=== PATIENT | male | born 1995 | race Hispanic/Latino ===

== ENCOUNTER 2017-08-09 20:00 | Emergency (ER) | payer SELFPAY ==
[2017-08-09] MEDS ORDERED: DIPHENHYDRAMINE HCL 25 MG CAPSULE ONE (20:54)
[2017-08-09] MEDS ORDERED: FAMOTIDINE 20MG TAB 20 MG TAB ONE (20:54)
[2017-08-09] MEDS ORDERED: PREDNISONE 20 MG TABLET ONE (20:54)
== END 2017-08-09 21:41 | disposition home or self-care (01) ==
LOC: EDH 20:00
DX: L25.9 Unspecified contact dermatitis, unspecified cause (principal)
CPT/HCPCS: 99284; Q0163

== ENCOUNTER 2023-06-13 19:21 | Emergency (ER) | payer BC, OTHER ==
[~2023-06-13] VITALS: Ht 167.6 cm; Wt 101.6 kg
[2023-06-13 20:07] LABS: HEMATOCRIT 46.2 % (42-54); MEAN CORPUSCULAR HEMOGLOBIN 33.7 pg (27.0-33.0); MEAN CORPUSCULAR HGB CONC 36.1 g/dL (32.0-36.0); MEAN CORPUSCULAR VOLUME 93.3 fL (79-99); PLATELET COUNT (AUTO) 279 K/uL (130-400); RED BLOOD CELL COUNT(AUTO) 4.95 MIL/uL (4.50-6.20); RED CELL DISTRIBUTION WIDTH 12.1 % (11.0-15.5); WHITE BLOOD COUNT (AUTO) 10.7 K/uL (4.8-10.8)
[2023-06-13 20:15] LABS: CREATININE 1.1 mg/dL (0.5-1.5)
[2023-06-13 20:29] LABS: MAGNESIUM 2.2 mg/dL (1.80-2.40); THYROID STIMULATING HORMONE 4.75 uIU/mL (0.36-3.74)
[2023-06-13] MEDS ORDERED: CYCLOBENZAPRINE HCL 10 MG TABLET PO ONE (20:30)
[2023-06-13 21:08] VITALS: BP 135/68; PULSE 75; RESP 17; O2SAT 98
== END 2023-06-13 21:17 | disposition home or self-care (01) ==
LOC: EDH 19:21
DX: M62.838 Other muscle spasm (principal); R94.6 Abnormal results of thyroid function studies
CPT/HCPCS: 36415; 80048; 82550; 83735; 84443; 84484; 85027; 93005

== ENCOUNTER 2025-07-15 11:03 | Emergency (ER) | payer BC ==
[~2025-07-15] VITALS: Ht 167.6 cm; Wt 99.8 kg
--- NOTE | 2025-07-15 11:13 | ERN ---
ED Note History of Present Illness Stated Complaint: CHEST PAIN Chief Complaint: Chest Pain Time Seen by MD: 11:05 Dictation: PATIENT IS A 30-YEAR-OLD MALE COMING IN TODAY WITH LEFT SHOULDER AND ANTERIOR CHEST PAIN HE HAS HAD OFF AND ON FOR THE LAST 2-3 WEEKS. NO FEVER NO CHILLS NO NAUSEA VOMITING. HE STATES THE PAIN DOES NOT RADIATE. 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 FINALLY SAID HE HAS A SMOKER. SAID HE SAW HIS PRIMARY CARE DOCTOR LAST WEEK WHO EXAMINED HIM AND GAVE HIM PREDNISONE HOWEVER IT HAS NOT HELPED. STATES HE HAS BEEN COUGHING RECENTLY AND HE THINKS IT IS BECAUSE OF THE SMOKING, HE SAID HE COUGHED UP SOME BLOOD-TINGED PHLEGM AFTER COUGHING SEVERAL TIMES. 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 Allergies: Coded Allergies: No Known Allergies (Unverified Allergy, Unknown, 06/13/23) Past Medical History Past Medical History: No Pertinent History Surgical History: None Social History: Smokers, Drugs RN Note Reviewed/Agreed w/PFSH: Yes Review of System Dictation CONSTITUTIONAL: NEGATIVE EXCEPT FOR HPI HEAD/FACE: NEGATIVE EXCEPT FOR HPI EENT: NEGATIVE EXCEPT FOR HPI RESPIRATORY: NEGATIVE EXCEPT FOR HPI LEFT CHEST PAIN GASTROINTESTINAL/ABDOMINAL: NEGATIVE EXCEPT FOR HPI GENITOURINARY: NEGATIVE EXCEPT FOR HPI MUSCULOSKELETAL: NEGATIVE EXCEPT FOR HPI INTEGUMENTARY: NEGATIVE EXCEPT FOR HPI NEUROLOGICAL/PSYCH: NEGATIVE EXCEPT FOR HPI HEMATOLOGIC/LYMPHATIC: NEGATIVE EXCEPT FOR HPI ALL SYSTEMS NEGATIVE, EXCEPT NOTED ABOVE. 13 POINT REVIEW OF SYSTEMS ASSESSED AND ALL NEGATIVE EXCEPT FOR ABOVE. Initial Vital Sign VS Vital Signs Date Time Temp Pulse Resp B/P (MAP) Pulse Ox O2 Delivery O2 Flow Rate FiO2 07/15/25 11:05 98.2 102 16 143/81 98 Room Air 07/15/25 11:41 0 21 Physical Exam Dictation VITAL SIGNS REVIEWED GENERAL APPEARANCE: ALERT, ORIENTED X 3, NO ACUTE DISTRESS, WELL DEVELOPED, NOURISHED. HEAD AND FACE: NON-TRAUMATIC. EYES: PERRL, PINK CONJUNCTIVAS, EYELID NO TRAUMA, ANTERIOR CHAMBER WITH ARCUS SENILIS. EARS: PINNAS INTACT AND NO SIGNS OF TRAUMA OR ERYTHEMA EAR CANALS CLEAR AND NO DISCHARGE TM NO ERYTHEMA NOSE: NO DISCHARGE, NO BLEEDING. OROPHARYNX: MOUTH NORMAL, TONGUE PINK, PHARYNX CLEAR,NO ERYTHEMA, TONSILS NO EXUDATES, NO ABSCESSES NOTED, MUCOUS MEMBRANE MOIST NECK: SUPPLE, NON-TENDER, NO THYROMEGALY, NO MASSES, NO JVD, NO BRUITS BREAST:DEFERRED CHEST LEFT ANTERIOR CHEST PAIN TENDERNESS PALPABLE REPRODUCES PAIN., NO CREPITUS, NO PARADOXICAL MOVEMENT, NO RETRACTIONS LUNGS:CLEAR, WELL-VENTILATED, SYMMETRIC, NO RALES, NO WHEEZING, NO RHONCHI, NO STRIDOR, GOOD BREATH SOUNDS BILATERALLY HEART: REGULAR RATE, REGULAR RHYTHM, NO MURMUR, NO GALLOPS VASCULAR: NO PERIPHERAL EDEMA, ABDOMEN: SOFT, POSITIVE BOWEL SOUNDS, NONDISTENDED, NO GUARDING, NONTENDER, NO REBOUND, NO MASSES NO HEPATOMEGALY, NO SPLENOMEGALY, NO JANSEN'S SIGN, NO HERNIAS. RECTAL: DEFERRED GENITAL: DEFERRED NEUROLOGICAL: NORMAL SPEECH, MOTOR FUNCTION INTACT, SENSORY FUNCTION INTACT MUSCULOSKELETAL: NECK NONTENDER, FULL RANGE OF MOTION, BACK NONTENDER, FULL RANGE OF MOTION, EXTREMITIES: NONTENDER, FULL RANGE OF MOTION SKIN: COLOR PINK, DRY, NO TURGOR, NO RASH, NO LACERATIONS, NO ABRASIONS, NO CONTUSIONS. LYMPHATIC: DEFERRED Results (Laboratory/Radiology) Laboratory/Radiology Laboratory Tests Test 07/15/25 11:23 White Blood Count 8.1 K/uL (4.8-10.8) Red Blood Count 5.36 MIL/uL (4.50-6.20) Hemoglobin 17.4 g/dL (14.0-18.0) Hematocrit 49.5 % (42-54) Mean Corpuscular Volume 92.4 fL (79-99) Mean Corpuscular Hemoglobin 32.5 pg (27.0-33.0) Mean Corpuscular Hemoglobin Concent 35.2 g/dL (32.0-36.0) Red Cell Distribution Width 12.2 % (11.0-15.5) Platelet Count 257 K/uL (130-400) Mean Platelet Volume 10.4 fL (7.5-10.5) Immature Granulocyte % (Auto) 0.2 % (0-1) Neutrophils (%) (Auto) 48.9 % (40.0-77.0) Lymphocytes (%) (Auto) 39.7 % (21.0-51.0) Monocytes (%) (Auto) 5.7 % (3.0-13.0) Eosinophils (%) (Auto) 4.9 % (0.0-8.0) Basophils (%) (Auto) 0.6 % (0.0-5.0) Neutrophils # (Auto) 4.0 K/uL (1.8-7.7) Lymphocytes # (Auto) 3.2 K/uL (1.0-4.8) Monocytes # (Auto) 0.5 K/uL (0.1-1.0) Eosinophils # (Auto) 0.40 K/uL (0.00-0.70) Basophils # (Auto) 0.05 K/uL (0.00-0.20) Absolute Immature Granulocyte (auto 0.02 K/uL (0-1) Nucleated Red Blood Cells 0.0 % (0.0-0.19) Sodium Level 140 mmol/L (136-145) Potassium Level 4.1 mmol/L (3.5-5.1) Chloride Level 105 mmol/L (101-111) Carbon Dioxide Level 27 mmol/L (21-32) Blood Urea Nitrogen 17 mg/dL (7-18) Creatinine 1.1 mg/dL (0.5-1.3) Glomerular Filtration Rate Calc 94 mL/min (>90) Random Glucose 100 mg/dL (70-105) Total Calcium 9.0 mg/dL (8.5-10.1) Troponin I High Sensitivity 7 ng/L (4-75) 1132/CHEST X-RAY NEGATIVE Labs Reviewed?: Yes EKG: (+) NSR EKG Comment: 1107/EKG SINUS RHYTHM/HEART RATE 94/AXIS NORMAL/EARLY REPOLARIZATION SEEN V4 V5 V6 ED Course ED Course Orders Procedure Category Date Status Time Cbc With Differential LAB 07/15/25 Complete 11:09 Chest 1vw RAD 07/15/25 Taken 11:09 12 Lead Ekg Tracing- EKG 07/15/25 Complete Technical 11:09 Troponin I High LAB 07/15/25 Complete Sensitivity 11:09 Basic Metabolic Panel LAB 07/15/25 Complete 11:09 Ibuprofen 800 Mg Tab PHA 07/15/25 Complete (Motrin) 11:30 Current Medications Medications (Trade) Dose Ordered Sig/Kamaljit Route PRN Reason Start Time Stop Time Status Last Admin Dose Admin Ibuprofen (moTRIN) 800 mg ONCE ONCE PO 07/15/25 11:30 07/15/25 11:31 DC Vital Signs Date Time Temp Pulse Resp B/P (MAP) Pulse Ox O2 Delivery O2 Flow Rate FiO2 07/15/25 11:41 98.2 92 16 138/74 98 Room Air* 0 21 07/15/25 11:05 98.2 102 16 143/81 98 Room Air 1204/cardiac workup is negative chest x-ray negative. Patient will be discharged home with costochondritis and treated for pain HEART Score Response (Comments) Value History: Low suspicion (0) 0 EKG: Normal 0 Age: < 45yrs (0) 0 Risk Factors: No known risk factors (0) 0 Initial Troponin: Normal limit (0) 0 Total 0 Medical Decision Making MDM MDM: Differential diagnosis: Pneumonia/bronchitis/ACS/AMI/electrolyte imbalance/dehydration/costochondritis Rationale: Tests considered and ordered secondary to shared decision making include: EKG/labs/radiology Previous outside records reviewed: Old ER visits. Risk of complication and/or morbidity or mortality of patient management: None Medications-Per medication reconciliation Need for hospitalization: Patient does not meet criteria for hospitalization. No Need for emergency major/minor surgery: No There are no social concerns with this patient. Prescription drug management ibuprofen Prescriptions will include symptomatic care Patient's prior external medical records from other ER visits were reviewed by me as indicated. Prior testing and results from previous visits were reviewed. Prior tests were taken into account with medical decision making and resource utilization, independent historian/historians were used to obtain complete medical history. I independently interpreted the test that were performed, results were reviewed by me and considered findings on radiology if ordered. Medical management and examination interpretation discussions were had by me w ith other qualified healthcare professionals as indicated for the patient's care. DX & DISP Disposition: Discharge Departure Impression: Primary Impression: Acute costochondritis Condition: Stable Scripts Ibuprofen (Ibuprofen 800 mg Tab) 800 Mg Tab 800 MG PO Q8H PRN for fever or pain, #30 TAB 0 Refills Prov: PAUL GRAHAM 07/15/25 Additional Instructions: Follow-up with primary care provider in 1 to 2 days. Take medications as directed here in the emergency room. Okay to continue home medications unless otherwise discussed during your visit in the emergency room today. Return to your nearest emergency room if symptoms worsen or if there is no improvement. Call 911 if you need immediate assistance. Take Tylenol or Motrin [id number] as needed and if no contraindications are present. Increase oral hydration. A wound culture or urine culture was ordered here in the emergency room department please follow-up with primary care provider and advise them to get repeat ports from our facility. If you had any Jose David wrap/splints that were applied here, please do not remove them until you see your primary care or specialty. Take ibuprofen every8 hours with food for the next three days. Diet and activity as tolerated. See your primary care doctor for follow up Referrals: SELF,REFERRAL (PCP) Time of Disposition: 12:04 I have reviewed the case, and I agree with, Diagnosis and Plan PAUL GRAHAM OVERNIGHT ASSOCIATE Jul 15, 2025 11:13
--- NOTE | 2025-07-15 11:17 | EKG ---
[facility] Test Date: 2025-07-15 Test Time: 11:07:46 Pat Name: TOM ALLAN Department: ED Room: Gender: M [employer] Operator: [id number] : 1995 Requested By: PAUL GRAHAM Order Number: [id number] Reading MD: Modesto Jordan Measurements Intervals [place] Rate: 94 P: 47 VT: 158 QRS: 60 QRSD: 97 T: 31 QT: 352 QTc: 440 Interpretive Statements Sinus rhythm ST elev, probable normal early repol pattern Compared to ECG 06/13/2023 20:31:26 No significant changes Electronically Signed On 07-16-2025 09:32:03 EVENT DECORATOR AND DESIGNER by Modesto Jordan Please click the below link to view image of tracing.
[2025-07-15 11:30] LABS: IMMATURE GRANULOCYTE ABSOLUTE 0.02 K/uL (0-1); NUCLEATED RED BLOOD CELLS 0.0 % (0.0-0.19); PLATELET COUNT (AUTO) 257 K/uL (130-400); RED BLOOD CELL COUNT(AUTO) 5.36 MIL/uL (4.50-6.20); RED CELL DISTRIBUTION WIDTH 12.2 % (11.0-15.5); WHITE BLOOD COUNT (AUTO) 8.1 K/uL (4.8-10.8)
[2025-07-15 11:44] LABS: CREATININE 1.1 mg/dL (0.5-1.3); GLOMERULAR FILTR. RATE CALC 94.0 mL/min (>90); GLUCOSE,RANDOM 100.0 mg/dL (70-105); SODIUM SERUM 140.0 mmol/L (136-145); UREA NITROGEN, BLOOD 17.0 mg/dL (7-18)
[2025-07-15 12:15] VITALS: BP 132/70; PULSE 88; RESP 16; TEMP 98.2; O2SAT 98
--- NOTE | 2025-07-15 12:58 | HMCIMG ---
EXAM: CR Chest, 1 View. CLINICAL HISTORY: CHEST PAIN COMPARISON: None provided. FINDINGS: LUNGS: The lungs show no infiltrate or other acute finding. PLEURAL SPACES: No pleural effusion or pneumothorax. MEDIASTINUM: Cardiac size and mediastinal contours within normal limits. BONES: No acute osseous abnormality. IMPRESSION: No acute cardiopulmonary pathology is evident. /[place]
== END 2025-07-15 12:17 | disposition home or self-care (01) ==
LOC: EDH 11:03
DX: M94.0 Chondrocostal junction syndrome [Tietze] (principal); F17.200 Nicotine dependence, unspecified, uncomplicated
CPT/HCPCS: 36415; 71045; 80048; 84484; 85025; 93005; 99284